=== PATIENT | female | born 1935 | race Caucasian/White ===

== ENCOUNTER 2017-03-04 14:51 | Emergency (ER) | payer MEDICARE, BC ==
[~2017-03-04] VITALS: Ht 157.5 cm; Wt 54.5 kg
[2017-03-04 14:55] VITALS: BP 109/61; PULSE 72; TEMP 98
== END 2017-03-04 17:20 | disposition home or self-care (01) ==
LOC: COL.ER 14:51
DX: S00.03XA Contusion of scalp, initial encounter (principal); W01.198A Fall on same level from slipping, tripping and stumbling with subsequent striking against other object, initial encounter